=== PATIENT | female | born 1950 | race Caucasian/White ===

== ENCOUNTER 2018-09-10 13:32 | Emergency (ER) | payer OTHER ==
[2018-09-10] MEDS ORDERED: OXYCODONE/APAP 5/325 TAB PO ONE (14:51)
--- NOTE | 2018-09-10 16:04 | EDPHY ---
General Time Seen by Provider: 09/10/18 14:44 Narrative: CLINICAL IMPRESSION: Left elbow and left shoulder pain ASSESSMENT/PLAN: Patient is a 68-year-old female with a history of fibromyalgia who presents with complaint of left shoulder and elbow pain pain after sustaining a slip and fall on the ice. Patient is nontoxic-appearing, she is in mild distress on arrival. Elbow x-rays reveal comminuted olecranon fracture, shoulder x-ray revealed possible glenoid fracture. There was no evidence of open fracture, dislocation, compartment syndrome or neurovascular compromise. Her history and physical examination is most consistent with comminuted left olecranon fracture and left shoulder pain; possible underlying glenoid fracture. The patient was placed in a posterior long arm splint and sling. CMS intact post splint placement. She was given a single dose of Percocet with improvement of her pain. She will continue extra-strength Tylenol scheduled as well as oxycodone for more severe pain. Patient is visiting from [place] with plans to return on Sunday. She would prefer to follow up with Orthopedic surgery on her return which we feel is reasonable. She is well established with PCP and will call to schedule follow-up as well as get a referral. She was given an orthopedic surgery referral locally as needed. Return precautions discussed-patient to return to the emergency Department for significantly worsening or uncontrolled pain, significant swelling, numbness or tingling of the extremity, paleness or coolness of her digits, fever or for any other concerning symptom. The patient verbalizes understanding and she is in agreement with this plan. DIFFERENTIAL DX: Fracture, dislocation, compartment syndrome, neurovascular compromise, strain ED PROCEDURES: Procedure: Splint placement. A posterior long-arm splint was applied. After application of the splint I returned and re-examined the patient. The splint was adequately immobilizing the joint and distal to the splint the patient's circulation and sensation was intact. ED COURSE: 1400: Case discussed with Dr. Moon. 1600: Discussed shoulder x-ray results with Dr. Pedroza, possible glenoid fracture. Will have patient follow up on outpatient basis as we are conservatively treating. No need for CT at this time. CHIEF COMPLAINT: Left shoulder pain, left elbow pain HPI: Patient is a 68-year-old female with a significant history of fibromyalgia who presents to the emergency department complaining of left elbow pain and left shoulder pain after sustaining a slip and fall on the ice. Patient reports she was walking outside when she slipped causing her to fall directly onto her left elbow. She immediately experienced pain and swelling at the site of her elbow, also is experiencing some upper arm pain. Patient did not hit her head, there was no loss of consciousness. She denies any neck or back pain. Patient has had limited mobility secondary to pain, she has not tried anything for pain. She is visiting from [place] with plans to return this coming Sunday. She denies any numbness or tingling of her hand or digits. Denies any other concern or complaint. PAST MEDICAL HISTORY: Fibromyalgia Family History: Noncontributory Social History: Denies alcohol, denies smoking, denies illicit drug use ROS: A full 10 point review of systems was negative except for those mentioned in HPI. PHYSICAL EXAM: General Appearance: Well-developed, mildly uncomfortable however not toxic- appearing. HEENT: Normocephalic, atraumatic. Nares clear. Oropharynx clear is no erythema or exudates, no tonsillar hypertrophy or asymmetry. Dentition without abnormality. Eyes: PERRLA, no acute vision change, nystagmus, swelling, discharge, pain or photosensitivity. Conjunctiva pink, no pallor or injection. Respiratory: There are no retractions, lungs are clear to auscultation. Cardiac: Regular rate and rhythm, no murmurs or gallops. Gastrointestinal: Abdomen is soft, nontender, bowel sounds normal, no masses/ hernia, no rigidity, guarding or focal peritoneal findings. Skin: Warm, dry, no rashes, no nodules on palpation. Upper Extremities: No clavicle tenderness or deformity. Patient with no tenderness to palpation of the generalized shoulder, she is tender at the proximal humerus. The upper arm compartment is soft. No increased warmth on palpation. No obvious deformity, abrasions, ecchymosis. No atrophy or asymmetry compared to opposite side. Limited ROM to flexion/extension/abduction/adduction, pain elicited with all movement. Patient with pain and obvious swelling to the olecranon process of the left elbow. Faint overlying abrasion, no evidence of open wounds or open fracture. Patient is able to pronate and supinate. 2+ radial pulses with capillary refill < 2 seconds. 5/5 strength at fingers, wrist, elbow. Resisted wrist extension (radial nerve): normal. Resisted thumb opposition ( median nerve): normal. Resisted finger abduction (ulnar nerve): normal. Sensation intact throughout. Neck: FROM intact to flexion/extension/rotational movement. No midline tenderness. No step-off or deformity. Back: No step-off, palpable bony abnormality, edema, erythema or ecchymosis of the cervical, thoracic or lumbar spines. Thoracic and lumbar spines with no midline or paraspinal muscle tenderness to palpation. Full range of motion of all spines. 5/5 and equal strength of the UEs and LEs bilaterally including shoulder shrug ( except right shoulder as mentioned above). Pulses: 2+ and equal radial, DP and PT pulses bilaterally. Sensation intact and symmetric to light touch from face, UEs and LEs bilaterally. MEDICAL DECISION MAKING: Patient was seen independently. Secondary supervising physician at time of evaluation was Dr. Moon, he did not personally evaluate this patient. Diagnosis: Left shoulder pain, low comminuted left olecranon fracture. New, requires workup Summary: See Assessment and Plan for summary of ED visit Clinical lab tests: Not applicable. Independent visualization of images, tracing, or specimens: Yes. Decision to obtain medical records or history from someone other than the patient: No Review / Summarize previous medical records: None available Discussed patient with another provider: Yes, Dr. Moon and Dr. Pedroza Patient Progress: Stable, discharged. - Diagnostics Imaging Results: Imaging Impressions Elbow X-Ray 09/10/18 13:39 Impression: Comminuted olecranon fracture. Shoulder X-Ray 09/10/18 14:50 Impression: Possible glenoid fracture. Consider correlation with noncontrast CT. - History Smoking Status: Former smoker - Objective Vital Signs: Initial Vital Signs Temperature (C) 36.4 C 09/10/18 13:35 Heart Rate 93 09/10/18 13:35 Respiratory Rate 18 09/10/18 13:35 Blood Pressure 157/100 H 09/10/18 13:35 O2 Sat (%) 100 09/10/18 13:35 O2 Delivery Mode Room Air Allergies/Adverse Reactions: benzonatate [From Tessalon Perles] Allergy (Verified 09/10/18 13:38) Sulfa (Sulfonamide Antibiotics) Allergy (Verified 09/10/18 13:38) Home Medications: Medication Instructions Recorded oxyCODONE IR [Oxycodone Ir (*)] 5 mg PO Q4-6PRN PRN #20 tab 09/10/18 Medications Given: Discontinued Medications Oxycodone/Acetaminophen (Percocet 5/325) 1 tab PO EDNOW ONE Stop: 09/10/18 14:52 Last Admin: 09/10/18 14:55 Dose: 1 tab Departure - Departure Disposition: Home, Routine, Self-Care Clinical Impression: Shoulder pain, acute Qualifiers: Laterality: left Qualified Code(s): M25.512 - Pain in left shoulder Closed olecranon fracture Qualifiers: Encounter type: initial encounter Laterality: left Qualified Code(s): S52.022A - Displaced fracture of olecranon process without intraarticular extension of left ulna, initial encounter for closed fracture Condition: Good Instructions: Elbow Fracture (ED), Shoulder Pain (ED) Additional Instructions: DISCHARGE INSTRUCTIONS FROM YOUR DOCTOR Thank you for visiting our emergency department today. Please keep in mind that discharge from the emergency department does not mean that there is nothing wrong - it simply means that we have not identified an emergency condition that requires further evaluation or treatment in the hospital. You should always plan to follow up with primary care for re-evaluation of your condition in the next 2-3 days. You were found to have a comminuted fracture of year left elbow, possible fracture of your shoulder which will need further evaluation by Orthopedic surgery. Rest, no heavy lifting, pushing, pulling, carrying with the affected arm. Apply ice on and off to the painful area, whichever feels better. Wear the sling as applied on and off as applied until follow-up. Gentle range of motion exercises several times daily to prevent your shoulder from stiffening up -- pendulum exercises as we discussed. For pain control: You may take Tylenol, I recommend 500-1000 mg every 6-8 hours as needed. Take with food and a full glass of water. Stop taking if this is upsetting her stomach. Do not exceed 3000 mg in a 24 hr period. Oxycodone as prescribed as needed for severe pain. Caution -this may cause dizziness and/or drowsiness. Do not combine with alcohol, driving or operating heavy machinery. Be careful as this can be addictive. Be careful as this can cause constipation. The emergency department cannot refill this medication. Continue your regular medication as prescribed. Call and schedule with a primary care provider for a follow-up appointment, please call your primary care provider in [place] for an orthopedic referral. I have provided an orthopedic surgeon referral here as needed prior to her departure. Return for increased or unmanageable pain, inability to move the shoulder or neck, fever, chills, redness, warmth, swelling, numbness, tingling or weakness of the arm, loss of fretted instrument inspector strength, coolness of the fingertips, chest pain, shortness of breath, or for any other new, worsening or worrisome symptoms. People present with illnesses and injuries in different ways, and it is always possible that we have missed something. You may always return for re-evaluation if symptoms worsen or if they are not improving or if you develop new/different symptoms. Again, thank you for choosing our emergency department. We hope that you feel better. Referrals: [facility] [Other] - As per Instructions (Call tomorrow for an orthopedic referral) Prescriptions: oxyCODONE IR [Oxycodone Ir (*)] 5 mg PO Q4-6PRN PRN #20 tab PRN Reason: Pain, Severe
[2018-09-10 16:24] VITALS: BP 150/95
== END 2018-09-10 16:53 | disposition home or self-care (01) ==
PROC: 2W39X1Z Immobilization of Left Upper Extremity using Splint (ICD-10-PCS; principal; 2018-09-10)
DX: S52.022A Displaced fracture of olecranon process without intraarticular extension of left ulna, initial encounter for closed fracture (principal); M25.512 Pain in left shoulder; W00.9XXA Unspecified fall due to ice and snow, initial encounter; Y92.9 Unspecified place or not applicable; Y93.9 Activity, unspecified; Y99.9 Unspecified external cause status